=== PATIENT | male | born 1990 | race American Indian/Alaskan Native ===

== ENCOUNTER 2016-11-29 00:42 | Emergency (ER) | payer MEDICAID, OTHER ==
[2016-11-29 01:07] VITALS: BMI 19.9
[2016-11-29 01:20] VITALS: BP 126/66; PULSE 72; RESP 18; TEMP 97.7; O2SAT 99
--- NOTE | 2016-11-29 01:39 | ED PDOC ---
Arrival/HPI - General Chief Complaint: Abnormal Skin Integrity Time Seen by Provider: 11/29/16 01:36 Historian: Patient - History of Present Illness Narrative History of Present Illness (Text): 11/29/16 01:39 Brock Hathaway is a 26 year old male who presents to the Emergency department complaining of a left forearm laceration tonight. Patient states he was jumping over a fence while playing with friends at 21:30 yesterday when his left forearm became caught on the edge of the fence. Patient denies any weakness/ numbness/tingling in the extremities, swelling, or any other complaints. Patient states his last tetanus vaccination was in 2011. Time/Duration: 4-6 hours (21:30) Symptom Onset: Gradual Symptom Course: Unchanged Severity Level: Mild Context: Street Past Medical History - Provider Review Nursing Documentation Reviewed: Yes - Psychiatric Hx Substance Use: No Family/Social History - Physician Review Nursing Documentation Reviewed: Yes Family/Social History: No Known Family HX Smoking Status: Never Smoked Hx Alcohol Use: Yes Frequency of alcohol use: Socially Hx Substance Use: No Allergies/Home Meds Allergies/Adverse Reactions: Allergies No Known Allergies Allergy (Verified 11/29/16 01:07) Home Medications: Home Meds Medication Instructions Recorded Confirmed No Known Home Med 11/29/16 11/29/16 Review of Systems - Physician Review All systems were reviewed & negative as marked: Yes - Review of Systems Constitutional: Normal. absent: Fevers Eyes: Normal ENT: Normal Respiratory: Normal. absent: SOB, Cough Cardiovascular: Normal. absent: Chest Pain Gastrointestinal: Normal. absent: Abdominal Pain, Diarrhea, Nausea, Vomiting Genitourinary Male: Normal. absent: Dysuria, Frequency, Hematuria, Urinary Output Changes Musculoskeletal: Normal. absent: Back Pain, Neck Pain Skin: Laceration (+left forearm laceration). absent: Rash Neurological: Normal. absent: Headache, Dizziness Endocrine: Normal Hemo/Lymphatic: Normal Psychiatric: Normal Physical Exam Vital Signs Reviewed: Yes Vital Signs Temp Pulse Resp BP Pulse Ox 11/29/16 01:18 97.7 F 72 18 126/66 99 Temperature: Afebrile Blood Pressure: Normal Pulse: Regular Respiratory Rate: Normal Appearance: Positive for: Well-Appearing, Non-Toxic, Comfortable Pain Distress: None Mental Status: Positive for: Alert and Oriented X 3 - Systems Exam Head: Present: Atraumatic, Normocephalic Pupils: Present: PERRL Extroacular Muscles: Present: EOMI Conjunctiva: Present: Normal Mouth: Present: Moist Mucous Membranes Neck: Present: Normal Range of Motion Upper Extremity: Present: Normal ROM, NORMAL PULSES, Neurovascularly Intact, Capillary Refill < 2s, Other (3 cm laceration, slightly irregular, to dorsal left forearm). No: Cyanosis, Edema, Swelling, Erythema, Temperature Abnormalties Lower Extremity: Present: Normal Inspection. No: Edema Neurological: Present: GCS=15, CN II-XII Intact, Speech Normal Skin: Present: Warm, Dry, Normal Color. No: Rashes Psychiatric: Present: Alert, Oriented x 3, Normal Insight, Normal Concentration Medical Decision Making ED Course and Treatment: 11/29/16 01:39 Impression: 26 year old male complaining of left forearm laceration s/p injury at 21:30. Differential Diagnosis include but are not limited to: laceration Plan: -- Laceration Repair -- Reassess and disposition Progress Notes: 11/29/16 02:08 PROCEDURE: LACERATION REPAIR Performed by the emergency provider Location: Dorsal left forearm Length: 3 cm Description: Slightly irregular ,no foreign bodies Distal CMS: Normal. No deficits. Neurovascularly intact. Anesthesia: Lidocaine 1% Preparation: The wound was cleaned with NS and [place]. The area was prepped and draped in the usual sterile fashion. Exploration: The wound was explored and no foreign bodies were found. Procedure: The wound was closed with 5-0 nylon. 12 sutures placed. There was good approximation. Post-Procedure: Good closure and hemostasis. The patient tolerated the procedure well and there were no complications. CSM remains intact. Post procedure dressing applied. - Medication Orders Current Medication Orders: Discontinued Medications Lidocaine HCl (Lidocaine 1% (20ml)) Confirm Administered Dose 20 ml .ROUTE .STK- MED ONE Stop: 11/29/16 01:48 Last Admin: 11/29/16 02:00 Dose: 20 ml - Scribe Statement The provider has reviewed the documentation as recorded by the Scribjanes Hardy All medical record entries made by the Scribe were at my direction and personally dictated by me. I have reviewed the chart and agree that the record accurately reflects my personal performance of the history, physical exam, medical decision making, and the department course for this patient. I have also personally directed, reviewed, and agree with the discharge instructions and disposition. Disposition/Present on Arrival - Present on Arrival Any Indicators Present on Arrival: No History of DVT/PE: No History of Uncontrolled Diabetes: No Urinary Catheter: No History of Decub. Ulcer: No History Surgical Site Infection Following: None - Disposition Have Diagnosis and Disposition been Completed?: Yes Diagnosis: Arm laceration Disposition: HOSPITALIZED Disposition Time: 02:33 Patient Plan: Discharge Condition: STABLE Discharge Instructions (ExitCare): Laceration (ED), Care For Your Stitches (ED) Additional Instructions: Keep wound clean and dry/apply bacitracin/clean dressing daily/follow up with your doctor in 5-7 days for suture removal
[2016-11-29] MEDS ORDERED: Lidocaine 1% Inj (20ml) ONE (01:47)
== END 2016-11-29 03:06 | disposition home or self-care (01) ==
LOC: ED 00:42 → MERGE 00:42 → ED 03:06
DX: S51.812A Laceration without foreign body of left forearm, initial encounter (principal); W23.0XXA Caught, crushed, jammed, or pinched between moving objects, initial encounter; Y93.39 Activity, other involving climbing, rappelling and jumping off; Y92.410 Unspecified street and highway as the place of occurrence of the external cause

== ENCOUNTER 2016-12-02 19:20 | Inpatient (IN) | payer MEDICAID, OTHER ==
[2016-12-02] MEDS ORDERED: Vancomycin 1gm in NS 250ml 1 GM/250 ML BAG IVPB STA (20:06)
[2016-12-02] MEDS ORDERED: Piperacillin/Tazobact 3.375 gm 100 ML IVPB STA (20:06)
[2016-12-02 20:32] LABS: ADD MANUAL DIFF? NO
[2016-12-02 20:37] LABS: BASO # 0.01 K/mm3 (0.0-2.0); BASO % 0.1 % (0.0-3.0); EOS % 0.1 % (1.5-5.0); GRAN # 7.47 (1.4-6.5); HEMATOCRIT 40.5 % (42.0-52.0); LYMPH # 1.4 (1.2-3.4); LYMPH % 14.1 % (22.0-35.0); MEAN CELL VOLUME 86.9 fL (80.0-105.0); MEAN CORPUSCULAR HEMOGLOBIN 30.9 pg (25.0-35.0); MEAN CORPUSCULAR HGB CONC 35.6 g/dl (31.0-37.0); MEAN PLATELET VOLUME 9.6 fl (7.0-11.0); MONO # 0.8 (0.1-0.6); MONO % 8.7 % (1.0-6.0); PLATELET COUNT 194 10^3/uL (120.0-450.0); RED CELL DISTRIBUTION WIDTH 13.9 % (11.5-14.5); WHITE BLOOD COUNT 9.7 10^3/ul (4.5-11.0)
[2016-12-02 21:00] LABS: ALB/GLOB RATIO 1.2 (1.1-1.8); ALKALINE PHOSPHATASE 52 U/L (38-133); ALT/SGPT 19 U/L (7-56); AST/SGOT 32 U/L (15-59); BLOOD UREA NITROGEN 12 mg/dL (7-21); CALCIUM 10.2 mg/dL (8.4-10.5); CARBON DIOXIDE 28 mmol/L (21-33); CHLORIDE 95 mmol/L (98-107); GFR AFRICAN-AMERICAN > 60; GLUCOSE,RANDOM 89 mg/dL (70-110); POTASSIUM 3.3 mmol/L (3.6-5.0); SODIUM 135 mmol/L (132-148)
[2016-12-02 21:00] LABS: VENOUS BLOOD GAS BASE EXCESS 1.3 mmol/L (0.0-2.0); VENOUS BLOOD PH 7.34 (7.32-7.43)
[2016-12-02] MEDS ORDERED: Sodium Chloride 0.9% 1,000 ML IV STA (21:48)
--- NOTE | 2016-12-02 21:48 | ED PDOC ---
Arrival/HPI <ChrisDelgado - Last Filed: 12/03/16 00:14> - General Historian: Patient - History of Present Illness Time/Duration: Other (1 day) Context: Home <Patty Mcclain - Last Filed: 12/04/16 12:39> - General Chief Complaint: Wound Check Time Seen by Provider: 12/02/16 19:31 - History of Present Illness Narrative History of Present Illness (Text): 12/02/16 20:00 This 26 yo male presents to this ED c/o left forearm infection since yesterday. Patient stated he had a laceration repaired x 3 days ago. Patient kept the wound clean and dry for 2 days, so he undressed wound and noticed wound had a small draining. Patient stated left forearm is swollen as well.. Patient admits fever. (Patty Mcclain) Past Medical History - Provider Review Nursing Documentation Reviewed: Yes - Infectious Disease Hx of Infectious Diseases: None - Psychiatric Hx Substance Use: No - Anesthesia Hx Anesthesia: No - Suicidal Assessment Feels Threatened In Home Enviroment: No <Patty Mcclain - Last Filed: 12/04/16 12:39> Family/Social History - Physician Review Nursing Documentation Reviewed: Yes Family/Social History: No Known Family HX Smoking Status: Heavy Smoker > 10 Cigarettes Daily Hx Alcohol Use: No Hx Substance Use: No <Patty Mcclain - Last Filed: 12/04/16 12:39> Allergies/Home Meds <ChrisDelgado - Last Filed: 12/03/16 00:14> <Patty Mcclain - Last Filed: 12/04/16 12:39> Allergies/Adverse Reactions: Allergies No Known Allergies Allergy (Verified 12/02/16 19:27) Home Medications: Home Meds Medication Instructions Recorded Confirmed No Known Home Med 11/29/16 12/02/16 Review of Systems - Review of Systems Constitutional: Normal. absent: Fatigue, Weight Change, Fevers Eyes: Normal ENT: Normal Respiratory: Normal Cardiovascular: Normal Gastrointestinal: Normal Genitourinary Male: Normal Musculoskeletal: Other (See HPI) Skin: Normal Neurological: Normal Endocrine: Normal Hemo/Lymphatic: Normal Psychiatric: Normal <Patty Mcclain - Last Filed: 12/04/16 12:39> Physical Exam Temperature: Afebrile Blood Pressure: Normal Pulse: Regular Respiratory Rate: Normal Appearance: Positive for: Well-Appearing, Non-Toxic, Comfortable Pain Distress: None Mental Status: Positive for: Alert and Oriented X 3 - Systems Exam Head: Present: Atraumatic, Normocephalic Pupils: Present: PERRL Extroacular Muscles: Present: EOMI Conjunctiva: Present: Normal Mouth: Present: Moist Mucous Membranes Neck: Present: Normal Range of Motion Respiratory/Chest: Present: Clear to Auscultation, Good Air Exchange. No: Respiratory Distress, Accessory Muscle Use Cardiovascular: Present: Regular Rate and Rhythm, Normal S1, S2. No: Murmurs Abdomen: Present: Normal Bowel Sounds. No: Tenderness, Distention, Peritoneal Signs Back: Present: Normal Inspection Upper Extremity: Present: Normal ROM, NORMAL PULSES, Tenderness, Swelling, Erythema, Neurovascularly Intact, Temperature Abnormalties, Capillary Refill < 2s, Other ((+) 8 sutures placed left forearm with drainage, erythema, and swelling. No comparment syndrome). No: Cyanosis, Edema Lower Extremity: Present: Normal Inspection. No: Edema Neurological: Present: GCS=15, CN II-XII Intact, Speech Normal Skin: Present: Warm, Dry, Normal Color. No: Rashes Psychiatric: Present: Alert, Oriented x 3, Normal Insight, Normal Concentration <Patty Mcclain - Last Filed: 12/04/16 12:39> Vital Signs Temp Pulse Resp BP Pulse Ox 12/03/16 00:29 98.6 F 79 18 138/68 98 12/02/16 21:20 101 H 16 126/80 98 12/02/16 19:30 99.0 F 104 H 19 125/79 97 Medical Decision Making <Delgado Perez - Last Filed: 12/03/16 00:14> Re-evaluation Time: 22:45 Reassessment Condition: Re-examined, Improving,but remains with symptoms <Patty Mcclain - Last Filed: 12/04/16 12:39> ED Course and Treatment: I spoke with Dr. Hernandes regarding patient symptoms, and physical exam finding. He agrees with admission for observation. (Patty Mcclain) - Lab Interpretations Microbiology Results: Microbiology Results 12/02/16 20:15 Blood Blood Culture - Preliminary NO GROWTH AFTER 24 HOURS 12/02/16 19:45 Blood Blood Culture - Preliminary NO GROWTH AFTER 24 HOURS Lab Results: 12/03/16 08:00 12/03/16 08:00 Lab Results 12/03/16 08:00: WBC 7.3 D, RBC 4.14, Hgb 12.5 L, Hct 35.8 L, MCV 86.5, MCH 30.2 , MCHC 34.9, RDW 13.7, Plt Count 171, MPV 9.2, Gran % 62.3, Lymph % (Auto) 25.6 , [place] % (Auto) 10.7 H, Eos % (Auto) 1.1 L, Baso % (Auto) 0.3, Gran # 4.56, Lymph # 1.9, [place] # 0.8 H, Eos # 0.1, Baso # 0.02 12/03/16 08:00: Sodium 136, Potassium 3.9, Chloride 105, Carbon Dioxide 25, Anion Gap 10, BUN 9, Creatinine 0.9, Est GFR ( Amer) > 60, Est GFR (Non- Af Amer) > 60, Random Glucose 86, Calcium 8.6, Triglycerides 69, Cholesterol 144 , LDL Cholesterol Direct 72, HDL Cholesterol 59 12/03/16 08:00: Free T4 0.97, TSH 3rd Generation 1.05 12/03/16 08:00: Hepatitis A IgM Ab Negative, Hep Bs Antigen Negative, Hep B Core IgM Ab Negative, Hepatitis C Antibody Negative 12/03/16 08:00: RPR Nonreactive 12/03/16 08:00: Hemoglobin A1c 5.1 12/02/16 22:00: C-React Prot High Sens > 15.00 H 12/02/16 22:00: ESR 16 H 12/02/16 20:30: pO2 60 H, VBG pH 7.34, VBG pCO2 52.0, VBG HCO3 28.1 H, VBG Total CO2 29.7 H, VBG O2 Sat (Calc) 92.1 H, VBG Base Excess 1.3, VBG Potassium 3.6, Glucose 85, Lactate 2.1, FiO2 21.0, Sodium 136.0, Chloride 100.0, Venous Blood Potassium 3.6 12/02/16 19:45: Sodium 135, Potassium 3.3 L, Chloride 95 L, Carbon Dioxide 28, Anion Gap 15, BUN 12, Creatinine 1.0, Est GFR ( Amer) > 60, Est GFR (Non- Af Amer) > 60, Random Glucose 89, Calcium 10.2, Total Bilirubin 1.0, AST 32, ALT 19, Alkaline Phosphatase 52, Total Protein 9.0 H, Albumin 4.9 H, Globulin 4.1, Albumin/Globulin Ratio 1.2 12/02/16 19:45: WBC 9.7, RBC 4.66, Hgb 14.4, Hct 40.5 L, MCV 86.9, MCH 30.9, MCHC 35.6, RDW 13.9, Plt Count 194, MPV 9.6, Gran % 77.0 H, Lymph % (Auto) 14.1 L, [place] % (Auto) 8.7 H, Eos % (Auto) 0.1 L, Baso % (Auto) 0.1, Gran # 7.47 H, Lymph # 1.4, [place] # 0.8 H, Eos # 0.0, Baso # 0.01 - RAD Interpretation Radiology Orders: 12/02/16 20:05 FOREARM LEFT [RAD] Stat - Medication Orders Current Medication Orders: Acetaminophen (Tylenol 325mg Tab) 650 mg PO Q6H PRN PRN Reason: Fever >100.4 F Famotidine (Pepcid) 20 mg PO DAILY [facility] Last Admin: 12/04/16 09:19 Dose: 20 mg Cefepime HCl (Maxipime 1gm) 1 gm in 100 mls @ 100 mls/hr IVPB Q8 ROBE PRN Reason: Protocol Last Admin: 12/04/16 05:05 Dose: 100 mls/hr Vancomycin HCl (Vancomycin 1gm) 1 gm in 250 mls @ 167 mls/hr IVPB Q12H ROBE PRN Reason: Protocol Last Admin: 12/04/16 01:29 Dose: 167 mls/hr Ketorolac Tromethamine (Toradol) 30 mg IVP Q12H PRN PRN Reason: Pain, Mild (1-3) Stop: 12/07/16 22:19 Last Admin: 12/04/16 08:08 Dose: 30 mg Oxycodone/Acetaminophen (Percocet 5/325 Mg Tab) 1 tab PO Q4H PRN PRN Reason: Pain, severe (8-10) Stop: 12/06/16 15:43 Discontinued Medications Vancomycin HCl (Vancomycin 1gm) 1 gm in 250 mls @ 167 mls/hr IVPB STAT STA PRN Reason: Protocol Stop: 12/02/16 21:35 Last Admin: 12/02/16 21:22 Dose: 167 mls/hr Piperacillin Sod/Tazobactam Sod (Zosyn 3.375 In Ns 100ml) 100 mls @ 200 mls/hr IVPB STAT STA PRN Reason: Protocol Stop: 12/02/16 20:35 Last Admin: 12/02/16 20:31 Dose: 200 mls/hr Sodium Chloride (Sodium Chloride 0.9%) 1,000 mls @ 999 mls/hr IV .Q1H1M STA Stop: 12/02/16 22:48 Last Admin: 12/02/16 23:19 Dose: 999 mls/hr Cefepime HCl (Maxipime 1gm) 1 gm in 100 mls @ 100 mls/hr IVPB Q12 ROBE PRN Reason: Protocol Vancomycin HCl (Vancomycin 1gm) 1 gm in 250 mls @ 167 mls/hr IVPB Q24H ROBE Last Admin: 12/02/16 23:19 Dose: 167 mls/hr Sodium Chloride (Sodium Chloride 0.9%) 1,000 mls @ 100 mls/hr IV .Q10H ROBE Stop: 12/03/16 21:44 Last Admin: 12/04/16 01:29 Dose: 100 mls/hr Lidocaine HCl (Lidocaine 1% (20ml)) 0 ml IJ ONCE STA Stop: 12/03/16 14:11 Potassium Chloride (Potassium Chloride Oral Soln) 40 meq PO STAT STA Stop: 12/02/16 22:02 Last Admin: 12/03/16 00:22 Dose: 40 meq Potassium Chloride (K-Dur 20 Meq Er Tab) 40 meq PO STAT STA Stop: 12/02/16 22:13 Last Admin: 12/02/16 23:18 Dose: 40 meq Tetanus/Reduced Diphtheria/Acell Pertussis (Boostrix Vaccine Inj) 0.5 ml IM .ONCE ONE Stop: 12/02/16 22:09 Last Admin: 12/03/16 00:22 Dose: 0.5 ml - PA / FIRE EATER / Resident Statement / has reviewed & agrees with the documentation as recorded. / has examined the patient and agrees with the treatment plan. <Delgado Perez - Last Filed: 12/03/16 00:14> Disposition/Present on Arrival <Delgado Perez - Last Filed: 12/03/16 00:14> - Present on Arrival Any Indicators Present on Arrival: No History of DVT/PE: No History of Uncontrolled Diabetes: No Urinary Catheter: No History of Decub. Ulcer: No History Surgical Site Infection Following: None - Disposition Have Diagnosis and Disposition been Completed?: Yes Disposition Time: 23:00 <Patty Mcclain - Last Filed: 12/04/16 12:39> - Disposition Diagnosis: Cellulitis Disposition: HOSPITALIZED Patient Problems: Current Active Problems Problem Status Onset Cellulitis Acute Condition: GOOD
[2016-12-02] MEDS ORDERED: Potassium Chloride 40 mEq/30 ml LIQ UD PO STA (22:01)
[2016-12-02] MEDS ORDERED: TDAP Vaccine 0.5 mL Syr IM ONE (22:08)
[2016-12-02] MEDS ORDERED: Potassium Chloride 20 mEq ER Tab PO STA (22:12)
[2016-12-02] MEDS ORDERED: Vancomycin 1gm in NS 250ml IVPB SCH (22:15)
[2016-12-02] MEDS ORDERED: Vancomycin 1 g Inj IVPB SCH (22:15)
--- NOTE | 2016-12-02 22:23 | CP.PCM.HP ---
Addendum entered and electronically signed by Anival Henry DO 12/03/16 01:53: CC: pus and left arm pain Original Note: <Anival Henry - Last Filed: 12/02/16 22:20> History of Present Illness - History of Present Illness History of Present Illness: This patient is a 26yo M w/ no PMHx because he has not been to the doctor in the past 4 years, is presenting after he came to the ED for stitches in his left forearm; patient states he was climbing a fence and cut himself on it. He was given no antibiotics in the ED on his last visit. today when he went to clean the wound, he noticed that white pus was coming out that was malodorous. This has never happened to him before. Last tetanus shot was in 2011. Patient denies fevers/chills, MARTIN, CP, SOB, abdominal pain, N/V/D, dysuria/freq/urg/ change in urine color, lower extremtiy pain swelling. PMHx: denies Allergies: Denies FamHx: Denies Meds: Denies Social: lives at home with girlfriend; smokes 1ppd/10 years, denies illicit drug use Surgeries: denies The patient had a tachycardia of 101. All other VSS; no WBC; forearm X-Ray did not show any foreign bodies. He was given Vanc and Zosyn. Present on Admission - Present on Admission Any Indicators Present on Admission: No History of DVT/PE: No History of Uncontrolled Diabetes: No Urinary Catheter: No Decubitus Ulcer Present: No Review of Systems - Review of Systems All systems: reviewed and no additional remarkable complaints except Past Patient History - Infectious Disease Hx of Infectious Diseases: None - Past Social History Smoking Status: Heavy Smoker > 10 Cigarettes Daily - PSYCHIATRIC Hx Substance Use: No - SURGICAL HISTORY Hx Surgeries: No - ANESTHESIA Hx Anesthesia: No Meds Allergies/Adverse Reactions: Allergies Allergy/AdvReac Type Severity Reaction Status Date / Time No Known Allergies Allergy Verified 12/02/16 19:27 Physical Exam - Constitutional Appears: Well, Non-toxic - Head Exam Head Exam: ATRAUMATIC, NORMAL INSPECTION - Eye Exam Eye Exam: Conjunctival injection, EOMI, Normal appearance Pupil Exam: PERRL - ENT Exam ENT Exam: Mucous Membranes Moist - Neck Exam Neck exam: Positive for: Full Rom. Negative for: Lymphadenopathy - Respiratory Exam Respiratory Exam: Clear to Auscultation Bilateral, NORMAL BREATHING PATTERN. absent: Rales, Rhonchi, Wheezes - Cardiovascular Exam Cardiovascular Exam: REGULAR RHYTHM, +S1, +S2 - GI/Abdominal Exam GI & Abdominal Exam: Normal Bowel Sounds, Soft. absent: Tenderness - Extremities Exam Extremities exam: Positive for: full ROM. Negative for: calf tenderness, normal inspection Additional comments: 3-4cm linear laceration on lower forearm that is purulent and malodorous; there is induration and fluctuance - Back Exam Back exam: NORMAL INSPECTION. absent: CVA tenderness (L), CVA tenderness (R) - Neurological Exam Neurological exam: Alert, CN II-XII Intact, Normal Gait, Oriented x3 - Psychiatric Exam Psychiatric exam: Normal Affect - Skin Skin Exam: Warm Results - Vital Signs Recent Vital Signs: Last Vital Signs Temp 99.0 F 12/02/16 19:30 Pulse 101 H 12/02/16 21:20 Resp 16 12/02/16 21:20 BP 126/80 12/02/16 21:20 Pulse Ox 98 12/02/16 21:20 - Labs Result Diagrams: 12/02/16 19:45 12/02/16 19:45 Labs: Laboratory Results - last 24 hr 12/02/16 12/02/16 12/02/16 19:45 19:45 20:30 WBC 9.7 RBC 4.66 Hgb 14.4 Hct 40.5 L MCV 86.9 MCH 30.9 MCHC 35.6 RDW 13.9 Plt Count 194 MPV 9.6 Gran % 77.0 H Lymph % (Auto) 14.1 L [place] % (Auto) 8.7 H Eos % (Auto) 0.1 L Baso % (Auto) 0.1 Gran # 7.47 H Lymph # 1.4 Castro # 0.8 H Eos # 0.0 Baso # 0.01 pO2 60 H VBG pH 7.34 VBG pCO2 52.0 VBG HCO3 28.1 H VBG Total CO2 29.7 H VBG O2 Sat (Calc) 92.1 H VBG Base Excess 1.3 VBG Potassium 3.6 Glucose 85 Lactate 2.1 FiO2 21.0 Sodium 135 136.0 Potassium 3.3 L Chloride 95 L 100.0 Carbon Dioxide 28 Anion Gap 15 BUN 12 Creatinine 1.0 Est GFR ( Amer) > 60 Est GFR (Non-Af Amer) > 60 Random Glucose 89 Calcium 10.2 Total Bilirubin 1.0 AST 32 ALT 19 Alkaline Phosphatase 52 Total Protein 9.0 H Albumin 4.9 H Globulin 4.1 Albumin/Globulin Ratio 1.2 Venous Blood Potassium 3.6 Assessment & Plan - Assessment and Plan (Free Text) Assessment: 26yo M admitted for possible abscess in the L Lower Forearm Abscess L Lower Forearm -Surgical Consult: [place] for possible InD or exploration -f/u ESR/CRP if elevated forearm MRI may be indicated to r/o osteomyelitis -sepsis criteria not met -patient on Vanc and Cefepime for now as per Dr. Melissa; can adjust accordingly Prophylaxis SCD Pepcid Toradol for pain control OOB as tolerated Regular Diet Case discussed and seen with Dr. Cecilio Henry PGY1 Night Float Decision To Admit - Pt Status Changed To: Hospital Disposition Of: Observation - . Bed Request Type: Med/Surg Admitting Physician: Jamison Hernandes <Jamison Hernandes - Last Filed: 12/03/16 02:34> Results - Vital Signs Recent Vital Signs: Last Vital Signs Temp 99.8 F H 12/03/16 02:08 Pulse 76 12/03/16 02:08 Resp 20 12/03/16 02:08 BP 162/67 H 12/03/16 02:08 Pulse Ox 98 12/03/16 00:29 - Labs Result Diagrams: 12/02/16 19:45 12/02/16 19:45 Attending/Attestation - Attestation I have personally seen and examined this patient.: Yes I have fully participated in the care of the patient.: Yes I have reviewed all pertinent clinical information: Yes Notes (Text): 12/03/16 02:29 I agree with the above mentioned note by Dr. Barriga with the addition/exception of the followin26 y/o male without any significant PMHx presents to the ED with the complaint of drainage of pus and swelling of his left forearm since it was repaired a few days ago. Patient reports having a laceration to his forearm for which he came to [facility] and had repair with sutures. A few days later he reports drainage of pus , redness and pain around the wound which prompted him to return to the ED. He was reported to have subjective fevers as per the PA who examined the patient; Xray of the arm does not show any foreign body or bone involvement, thus an MRI would be unnecessary at this point, it does not appear to be osteomyelitis. Will have Surgery evaluate the patient for an I&D and place him on IV Abx for now.
--- NOTE | 2016-12-03 00:21 | CP.PCM.CON ---
<Niurka Dodson - Last Filed: 12/03/16 00:40> History of Present Illness - History of Present Illness History of Present Illness: General surgery consult for Dr. Harris Consulted for: Left forearm abscess Pt is a 26M who denies PMH who sustained a lacerated his left forearm on a fence 3 days ago and received stitches in [facility] ER and was discharged to home. Patient states the ER did not give him any antibiotics but that he was putting antibiotic ointment on the incision everyday at home. Yesterday patient noticed a foul odor coming from the incision and noticed thick fluid coming from it today so he returned to the ER. Patient states that he has mild tingling in his left fingers, and tenderness around the laceration with erythema of his arm, but denies any fevers, chills, CP, SOB, weakness, or decreased ROM in the L hand or arm. Patient's sutures were removed today in the ER, and patient states that decreased his pain and tingling. PMH: denies PSH: denies ALL: denies Patient is mildly tachycardic, afebrile XR of the L forearm showed no foreign bodies WBC: wnl Given zosyn in the ER Review of Systems - Review of Systems All systems: reviewed and no additional remarkable complaints except (as per HPI ) - Constitutional Constitutional: absent: Chills, Fever, Weakness - Cardiovascular Cardiovascular: absent: Chest Pain, Chest Pain at Rest, Dyspnea - Respiratory Respiratory: absent: Cough, Dyspnea, Wheezing - Gastrointestinal Gastrointestinal: absent: Abdominal Pain, Nausea, Vomiting - Musculoskeletal Musculoskeletal: As Per HPI - Integumentary Integumentary: As Per HPI - Neurological Neurological: As Per HPI Past Patient History - Infectious Disease Hx of Infectious Diseases: None - Past Medical History & Family History Past Medical History?: No - Past Social History Smoking Status: Heavy Smoker > 10 Cigarettes Daily - PSYCHIATRIC Hx Substance Use: No - SURGICAL HISTORY Hx Surgeries: No - ANESTHESIA Hx Anesthesia: No Meds Allergies/Adverse Reactions: Allergies Allergy/AdvReac Type Severity Reaction Status Date / Time No Known Allergies Allergy Verified 12/02/16 19:27 - Medications Medications: Current Medications Acetaminophen (Tylenol 325mg Tab) 650 mg PO Q6H PRN PRN Reason: Fever >100.4 F Famotidine (Pepcid) 20 mg PO DAILY [facility] Cefepime HCl (Maxipime 1gm) 1 gm in 100 mls @ 100 mls/hr IVPB Q12 [facility] PRN Reason: Protocol Vancomycin HCl (Vancomycin 1gm) 1 gm in 250 mls @ 167 mls/hr IVPB Q24H [facility] Last Admin: 12/02/16 23:19 Dose: 167 mls/hr Ketorolac Tromethamine (Toradol) 30 mg IVP Q12H PRN PRN Reason: Pain, Mild (1-3) Stop: 12/07/16 22:19 Physical Exam - Constitutional Appears: Well, Non-toxic, No Acute Distress - Head Exam Head Exam: ATRAUMATIC, NORMOCEPHALIC - Eye Exam Eye Exam: Conjunctival injection, EOMI. absent: Scleral icterus - ENT Exam ENT Exam: Mucous Membranes Moist, Normal Oropharynx - Respiratory Exam Respiratory Exam: NORMAL BREATHING PATTERN. absent: Accessory Muscle Use, Respiratory Distress - Cardiovascular Exam Cardiovascular Exam: Tachycardia, REGULAR RHYTHM - GI/Abdominal Exam GI & Abdominal Exam: absent: Distended, Tenderness - Extremities Exam Extremities exam: Positive for: pedal pulses present. Negative for: calf tenderness, pedal edema Additional comments: Left forearm erythematous and hot to the touch up to the elbow. 1+ non-pitting edema in the L hand 3-4cm laceration on the L forearm not approximated in the proximal half with dark, necrotic subcutaneous tissue at the base. Area of subcutaneous fluctuance extending beyond the proximal pole. Pressure on the fluctuant area produced 10cc 's of purulent-sanguinous output expressed from the laceration. 5/5 motor strength in the hands BL - Expanded Upper Extremities Exam Left Forearm Wrist exam: erythema, laceration, swelling, tenderness Neuro motor exam: finger 2-5 abduction intact, thumb abduction, wrist extension intact Vascular exam: radial pulse, ulnar pulse, normal capillary refill. absent: pallor, pulse deficit brachial art, pulse deficit radial art - Neurological Exam Neurological exam: Alert, Oriented x3 - Psychiatric Exam Psychiatric exam: Normal Affect, Normal Mood - Skin Additional comments: see extremity exam Results - Vital Signs Recent Vital Signs: Last Vital Signs Temp 99.0 F 12/02/16 19:30 Pulse 101 H 12/02/16 21:20 Resp 16 12/02/16 21:20 BP 126/80 12/02/16 21:20 Pulse Ox 98 12/02/16 21:20 - Labs Result Diagrams: 12/02/16 19:45 12/02/16 19:45 Assessment & Plan - Assessment and Plan (Free Text) Assessment: 26M with infected laceration and abscess of the left forearm Afebrile, HR 104 WBC wnl Plan: -Patient need I&D of abscess in the proximal pole of the laceration and debridement of necrotic tissue at the laceration base. This was not performed in ER as it may need to go to the OR tomorrow for thorough debridement and patient is stable -Continue IV antibiotics -Follow up wound culture -Monitor vitals closely -Close follow up on physical exam -NPO after midnight -IVF Further recs per Dr. Steven Dodson, PGY1 <Efren Harris - Last Filed: 12/05/16 14:38> Results - Vital Signs Recent Vital Signs: Last Vital Signs Temp 97.7 F 12/04/16 09:02 Pulse 57 L 12/04/16 09:02 Resp 20 12/04/16 09:02 BP 116/71 12/04/16 09:02 Pulse Ox 100 12/04/16 09:02 - Labs Result Diagrams: 12/04/16 10:31 12/04/16 10:31 Attending/Attestation - Attestation I have fully participated in the care of the patient.: Yes I have reviewed all pertinent clinical information: Yes Notes (Text): 12/05/16 14:36 Pt was seen and examined at bedside by resident Agree with above note and assessment Pt would need I & D of left forearm abscess IV antibitics Plan d.w Primary team in detail Risk and benefit explained in detail.
[2016-12-03 02:20] VITALS: RESP 20; BMI 21.7
[2016-12-03 08:24] LABS: ADD MANUAL DIFF? NO
--- NOTE | 2016-12-03 08:24 | RAD ---
PROCEDURE: Radiographs of the Left Forearm HISTORY: skin infection r/o FB COMPARISON: None available. TECHNIQUE: Frontal and lateral views obtained. FINDINGS: BONES: No fracture or destructive lesion. JOINT SPACES: Unremarkable. OTHER FINDINGS: Overall the soft tissues about the role and posterior forearm appear slightly prominent no gas-forming cellulitis is suggested. Clinical correlation needed. No radiopaque foreign body. No periosteal reaction. No osseous destruction IMPRESSION: No osseous abnormality. No radiopaque foreign body Soft tissue changes as above
[2016-12-03 08:30] LABS: BASO # 0.02 K/mm3 (0.0-2.0); BASO % 0.3 % (0.0-3.0); EOS # 0.1 (0.0-0.7); EOS % 1.1 % (1.5-5.0); GRAN # 4.56 (1.4-6.5); GRAN % 62.3 % (50.0-68.0); HEMATOCRIT 35.8 % (42.0-52.0); LYMPH # 1.9 (1.2-3.4); LYMPH % 25.6 % (22.0-35.0); MEAN CELL VOLUME 86.5 fL (80.0-105.0); MEAN CORPUSCULAR HEMOGLOBIN 30.2 pg (25.0-35.0); MEAN CORPUSCULAR HGB CONC 34.9 g/dl (31.0-37.0); MEAN PLATELET VOLUME 9.2 fl (7.0-11.0); MONO # 0.8 (0.1-0.6); MONO % 10.7 % (1.0-6.0); PLATELET COUNT 171 10^3/uL (120.0-450.0); RED CELL DISTRIBUTION WIDTH 13.7 % (11.5-14.5); WHITE BLOOD COUNT 7.3 10^3/ul (4.5-11.0)
[2016-12-03 08:42] LABS: BLOOD UREA NITROGEN 9 mg/dL (7-21); CALCIUM 8.6 mg/dL (8.4-10.5); CARBON DIOXIDE 25 mmol/L (21-33); CHLORIDE 105 mmol/L (95-110); CHOLESTEROL 144 mg/dL (130-200); GFR AFRICAN-AMERICAN > 60; GLUCOSE,RANDOM 86 mg/dL (70-110); POTASSIUM 3.9 mmol/L (3.6-5.0); SODIUM 136 mmol/L (132-148)
[2016-12-03 08:59] LABS: FREE T4 0.97 ng/dL (0.78-2.19)
[2016-12-03 09:13] LABS: THYROID STIMULATING HORMONE 1.05 mIU/mL (0.46-4.68)
[2016-12-03] MEDS ORDERED: Cefepime 1gm in NS 100ml 1 GM/100 ML BAG IVPB SCH (10:00)
--- NOTE | 2016-12-03 13:10 | CP.PCM.PN ---
<Abdelrahman León - Last Filed: 12/03/16 13:05> Subjective - Date & Time of Evaluation Date of Evaluation: 12/03/16 Time of Evaluation: 09:15 - Subjective Subjective: Medicine Progress Note for Dr. Smallwood Patient seen and examined at bedside. Fresh bandaging along LLE. No acute events after admission overnight. Denies pain, fevers, malaise, nausea, emesis. As per Surgery team, pending bedside debridement. Objective - Vital Signs/Intake and Output Vital Signs (last 24 hours): Temp Pulse Resp BP Pulse Ox 99 F 76 20 111/75 98 12/03/16 09:13 12/03/16 09:13 12/03/16 09:13 12/03/16 09:13 12/03/16 09:13 - Medications Medications: Current Medications Acetaminophen (Tylenol 325mg Tab) 650 mg PO Q6H PRN PRN Reason: Fever >100.4 F Famotidine (Pepcid) 20 mg PO DAILY [facility] Last Admin: 12/03/16 10:08 Dose: 20 mg Vancomycin HCl (Vancomycin 1gm) 1 gm in 250 mls @ 167 mls/hr IVPB Q24H [facility] Last Admin: 12/02/16 23:19 Dose: 167 mls/hr Sodium Chloride (Sodium Chloride 0.9%) 1,000 mls @ 100 mls/hr IV .Q10H [facility] Stop: 12/03/16 21:44 Cefepime HCl (Maxipime 1gm) 1 gm in 100 mls @ 100 mls/hr IVPB Q8 [facility] PRN Reason: Protocol Ketorolac Tromethamine (Toradol) 30 mg IVP Q12H PRN PRN Reason: Pain, Mild (1-3) Stop: 12/07/16 22:19 - Constitutional Appears: Well, Non-toxic, No Acute Distress - Head Exam Head Exam: ATRAUMATIC, NORMAL INSPECTION, NORMOCEPHALIC - Eye Exam Eye Exam: EOMI, Normal appearance. absent: Conjunctival injection, Scleral icterus Pupil Exam: absent: Irregular, Unequal - ENT Exam ENT Exam: Mucous Membranes Moist - Neck Exam Neck Exam: Full ROM, Normal Inspection - Respiratory Exam Respiratory Exam: Clear to Ausculation Bilateral, NORMAL BREATHING PATTERN. absent: Accessory Muscle Use, Chest Wall Tenderness, Decreased Breath Sounds, Rales, Rhonchi, Wheezes - Cardiovascular Exam Cardiovascular Exam: REGULAR RHYTHM, RRR, +S1, +S2. absent: Bradycardia, Tachycardia, Irregular Rhythm, +S4 - GI/Abdominal Exam GI & Abdominal Exam: Soft, Normal Bowel Sounds. absent: Distended, Firm, Rigid , Tenderness - Extremities Exam Additional comments: RLE exam: normal inspection, unremarkable, +2 radial pulse, +5 supervisor publications strength LLE: bandaging along forearm, under bandaging separation of proximal 1/3rd of suture site, yellow purulent drainage present, some further expression with pressure at upper medial forearm immediately adjacent to laceration, mild erythema surrounding laceration site, some warmth and tenderness to palpation at site and 2-3 cm surrounding site, intact +2 radial pulse, no loss of sensation throughout arm, +5 supervisor publications strength, areas of fluctuance around wound, most prominent medially and superiorly to wound Bilateral LE: unremarkable, motor grossly intact, no edema/erythema/gross asymmetry - Back Exam Back Exam: Full ROM. absent: paraspinal tenderness, rash noted - Neurological Exam Neurological Exam: Alert, Awake, Oriented x3 - Psychiatric Exam Psychiatric exam: Normal Affect, Normal Mood - Skin Additional comments: Abnormalities as already noted in Extremities exam, otherwise skin is normal/ intact/appropriate color/warm to palpation Assessment and Plan - Assessment and Plan (Free Text) Assessment: This patient is a 26 yo AA M with no PMH [place] [facility] [place] and poor healing of LUE laceration repaired 4 days prior now expressing purulence and with accompanying cellulitis, likely abscess underlying. Plan: 1) Abscess L Lower Forearm with poor wound healing -Likely wound infection with development of abscess, concurrent cellulitis -Per patient, was not discharged on any antibiotics, so not failure of outpatient antibiotics -Surgery (Grey) consulted, appreciate all recs; per surgery team, will likely undergo bedside debridement -Will cover will IV abx today and tomorrow (Vanc and Cefepime), likely d/c on Doxy and Keflex -CRP elevated, ESR mildly elevated (16, upper limit is 15), Forearm X-ray negative for Oseous abnormality, unlikely osteomyelitis -sepsis criteria not met; still no leukocytosis, still afebrile -Toradol for pain Dispo: Med/Surg pending Bedside Debridement per Surgery, continue IV abx FEN: Regular diet Access: IV Consults: Surgery Ppx: SCDs for DVT, Pepcid for GI Code Status: Full Patient seen and reviewed with attending, Dr. Smallwood <Trudi Smallwood - Last Filed: 12/03/16 15:25> Objective - Vital Signs/Intake and Output Vital Signs (last 24 hours): Temp Pulse Resp BP Pulse Ox 99 F 76 20 111/75 98 12/03/16 09:13 12/03/16 09:13 12/03/16 09:13 12/03/16 09:13 12/03/16 09:13 Intake and Output: 12/03/16 12/03/16 06:59 18:59 Intake Total 240 Balance 240 - Medications Medications: Current Medications Acetaminophen (Tylenol 325mg Tab) 650 mg PO Q6H PRN PRN Reason: Fever >100.4 F Famotidine (Pepcid) 20 mg PO DAILY [facility] Last Admin: 12/03/16 10:08 Dose: 20 mg Sodium Chloride (Sodium Chloride 0.9%) 1,000 mls @ 100 mls/hr IV .Q10H [facility] Stop: 12/03/16 21:44 Cefepime HCl (Maxipime 1gm) 1 gm in 100 mls @ 100 mls/hr IVPB Q8 [facility] PRN Reason: Protocol Last Admin: 12/03/16 14:26 Dose: 100 mls/hr Vancomycin HCl (Vancomycin 1gm) 1 gm in 250 mls @ 167 mls/hr IVPB Q12H [facility] PRN Reason: Protocol Ketorolac Tromethamine (Toradol) 30 mg IVP Q12H PRN PRN Reason: Pain, Mild (1-3) Stop: 12/07/16 22:19 Attending/Attestation - Attestation I have personally seen and examined this patient.: Yes I have fully participated in the care of the patient.: Yes I have reviewed all pertinent clinical information, including history, physical exam and plan: Yes Notes (Text): 12/03/16 15:21 Attending note; Patient seen and examined with resident. Patient is a 26-year-old male with no significant past medical history is admitted with left forearm abscess. The patient was recently seen in ER on 11/29/16 and sutures placed for injury to the left forearm. The patient noticed increased swelling and purulent discharge. He was not on any antibiotics. Patient was admitted for cellulitis and abscess of left forearm. Plan for incision and drainage by surgery today. Continue dressing change per surgery. Wound culture, blood culture sent. Patient is afebrile and nontoxic. Follow-up culture results. Upon discharge the patient will follow-up with PMD of choice.
[2016-12-03] MEDS ORDERED: Lidocaine 1% Inj (20ml) IJ STA (14:10)
[2016-12-03] MEDS: Cefepime 1gm in NS 100ml 1 GM/100 ML BAG IVPB SCH ×2 (14:26→21:11)
--- NOTE | 2016-12-03 15:09 | CP.PCM.PN ---
Subjective - Date & Time of Evaluation Date of Evaluation: 12/03/16 Time of Evaluation: 15:00 - Subjective Subjective: Incision and drainage performed at bedside. Oral consent obtain. See below for detail. Objective - Vital Signs/Intake and Output Vital Signs (last 24 hours): Temp Pulse Resp BP Pulse Ox 99 F 76 20 111/75 98 12/03/16 09:13 12/03/16 09:13 12/03/16 09:13 12/03/16 09:13 12/03/16 09:13 Intake and Output: 12/03/16 12/03/16 06:59 18:59 Intake Total 240 Balance 240 - Medications Medications: Current Medications Acetaminophen (Tylenol 325mg Tab) 650 mg PO Q6H PRN PRN Reason: Fever >100.4 F Famotidine (Pepcid) 20 mg PO DAILY [facility] Last Admin: 12/03/16 10:08 Dose: 20 mg Sodium Chloride (Sodium Chloride 0.9%) 1,000 mls @ 100 mls/hr IV .Q10H [facility] Stop: 12/03/16 21:44 Cefepime HCl (Maxipime 1gm) 1 gm in 100 mls @ 100 mls/hr IVPB Q8 [facility] PRN Reason: Protocol Last Admin: 12/03/16 14:26 Dose: 100 mls/hr Vancomycin HCl (Vancomycin 1gm) 1 gm in 250 mls @ 167 mls/hr IVPB Q12H [facility] PRN Reason: Protocol Ketorolac Tromethamine (Toradol) 30 mg IVP Q12H PRN PRN Reason: Pain, Mild (1-3) Stop: 12/07/16 22:19 Incision and Drainage - Time Time Performed: 15:06 - Time Out Time Out: Side verified, Site verified, Patient ID confirmed, Sterile procedures obs. - Procedure Procedure-Incision & Drainage: of left forearm abscess - Consent obtained Consent obtained: Verbal - Performed by Performed by: Attending Physician (resident physician) - Indications Indications: Cutaneous abscess - Contraindications Contraindications: None - Location Location: Left (mid forearm), Dorsal - Dimensions Dimensions Length cm: 10cm - Anesthetic Technique Anesthetic Technique: Local - Anesthetic Anesthetic: Lidocaine 1% - Procedure Procedure: Usual prep and drape, cm incision (3cm), Overlying area fluctuance, # scalpel used (11), Explored for loculations, Packed with sterile gauze - Drained Drained: ml pus (3cc) - Post-procedure Post procedure: Dressed (sterile dressing) - Complications Complications: None - Patient tolerated procedure Patient tolerated procedure: Well
[2016-12-03] MEDS ORDERED: Oxycodone/Acetaminophen 5/325 mg Tab PO PRN (15:42)
[2016-12-03] MEDS: Vancomycin 1gm in NS 250ml 1 GM/250 ML BAG IVPB SCH (15:57)
[2016-12-03] MEDS: Sodium Chloride 0.9% 1,000 ML IV SCH (15:57)
[2016-12-04] MEDS: Sodium Chloride 0.9% 1,000 ML IV SCH (01:29)
[2016-12-04] MEDS: Vancomycin 1gm in NS 250ml 1 GM/250 ML BAG IVPB SCH ×2 (01:29→14:24)
[2016-12-04] MEDS: Cefepime 1gm in NS 100ml 1 GM/100 ML BAG IVPB SCH ×2 (05:05→13:36)
[2016-12-04 09:02] VITALS: BP 116/71; PULSE 57; TEMP 97.7; O2SAT 100
[2016-12-04 10:33] LABS: ADD MANUAL DIFF? NO
[2016-12-04 10:38] LABS: BASO # 0.01 K/mm3 (0.0-2.0); BASO % 0.3 % (0.0-3.0); EOS # 0.1 (0.0-0.7); GRAN # 2.29 (1.4-6.5); GRAN % 58.1 % (50.0-68.0); HEMATOCRIT 35.9 % (42.0-52.0); LYMPH # 1.2 (1.2-3.4); MEAN CELL VOLUME 86.5 fL (80.0-105.0); MEAN CORPUSCULAR HEMOGLOBIN 29.6 pg (25.0-35.0); MEAN CORPUSCULAR HGB CONC 34.3 g/dl (31.0-37.0); MEAN PLATELET VOLUME 9.3 fl (7.0-11.0); MONO # 0.3 (0.1-0.6); MONO % 8.6 % (1.0-6.0); PLATELET COUNT 154 10^3/uL (120.0-450.0); RED CELL DISTRIBUTION WIDTH 13.4 % (11.5-14.5); WHITE BLOOD COUNT 3.9 10^3/ul (4.5-11.0)
[2016-12-04 10:47] LABS: BLOOD UREA NITROGEN 9 mg/dL (7-21); CALCIUM 8.8 mg/dL (8.4-10.5); CARBON DIOXIDE 27 mmol/L (21-33); CHLORIDE 105 mmol/L (98-107); GFR AFRICAN-AMERICAN > 60; GLUCOSE,RANDOM 118 mg/dL (70-110); POTASSIUM 4.1 mmol/L (3.6-5.0); SODIUM 136 mmol/L (132-148)
--- NOTE | 2016-12-04 12:07 | CP.PCM.PN ---
<Ayaan Abrams - Last Filed: 12/04/16 12:03> Subjective - Date & Time of Evaluation Date of Evaluation: 12/04/16 Time of Evaluation: 07:20 - Subjective Subjective: Ayaan Abrams D.O. PGY-1, General Surgery Progress Note: Dr. Steven Yates. 26 year old male with a left forearm laceration with abscess. POD #1 from bedside I&D. Patient is doing much better today and states that his swelling has gone down. Patient denies any complaints including any fevers/chills/N/V/D/ C or otherwise. Objective - Vital Signs/Intake and Output Vital Signs (last 24 hours): Temp Pulse Resp BP Pulse Ox 97.7 F 57 L 20 116/71 100 12/04/16 09:02 12/04/16 09:02 12/04/16 09:02 12/04/16 09:02 12/04/16 09:02 Intake and Output: 12/04/16 12/04/16 06:59 18:59 Intake Total 420 Balance 420 - Medications Medications: Current Medications Acetaminophen (Tylenol 325mg Tab) 650 mg PO Q6H PRN PRN Reason: Fever >100.4 F Famotidine (Pepcid) 20 mg PO DAILY [facility] Last Admin: 12/04/16 09:19 Dose: 20 mg Cefepime HCl (Maxipime 1gm) 1 gm in 100 mls @ 100 mls/hr IVPB Q8 [facility] PRN Reason: Protocol Last Admin: 12/04/16 05:05 Dose: 100 mls/hr Vancomycin HCl (Vancomycin 1gm) 1 gm in 250 mls @ 167 mls/hr IVPB Q12H [facility] PRN Reason: Protocol Last Admin: 12/04/16 01:29 Dose: 167 mls/hr Ketorolac Tromethamine (Toradol) 30 mg IVP Q12H PRN PRN Reason: Pain, Mild (1-3) Stop: 12/07/16 22:19 Last Admin: 12/04/16 08:08 Dose: 30 mg Oxycodone/Acetaminophen (Percocet 5/325 Mg Tab) 1 tab PO Q4H PRN PRN Reason: Pain, severe (8-10) Stop: 12/06/16 15:43 - Labs Labs: 12/04/16 10:31 12/04/16 10:31 - Constitutional Appears: Well, Non-toxic, No Acute Distress - Head Exam Head Exam: ATRAUMATIC, NORMOCEPHALIC - Eye Exam Eye Exam: Conjunctival injection, EOMI. absent: Scleral icterus - ENT Exam ENT Exam: Mucous Membranes Moist, Normal Oropharynx - Respiratory Exam Respiratory Exam: NORMAL BREATHING PATTERN. absent: Accessory Muscle Use, Respiratory Distress - Cardiovascular Exam Cardiovascular Exam: Tachycardia, REGULAR RHYTHM - GI/Abdominal Exam GI & Abdominal Exam: absent: Distended, Tenderness - Extremities Exam Extremities exam: left forearm laceration with packing in place, replaced at bedside, covered and wrapped, minimal serosangenous drainage on bandages - Neurological Exam Neurological exam: Alert, Oriented x3 - Skin Additional comments: warm, dry, see ext exam Assessment and Plan - Assessment and Plan (Free Text) Assessment: 26 year old male with a left forearm laceration with abscess. POD #1 from bedside I&D. Plan: Cont daily packing and dressing changes, patient ok to perform on his own Spoke with primary team, will need cont abx Will need to see us in outpatient office in 1 weeks time Ok to discharge from surgical standpoint at this time Will discuss with attending physician. Thank for the pleasure of participating in the care of this patient. <Efren Harris - Last Filed: 12/05/16 14:39> Objective - Vital Signs/Intake and Output Vital Signs (last 24 hours): Temp Pulse Resp BP Pulse Ox 97.7 F 57 L 20 116/71 100 12/04/16 09:02 12/04/16 09:02 12/04/16 09:02 12/04/16 09:02 12/04/16 09:02 - Labs Labs: 12/04/16 10:31 12/04/16 10:31 Attending/Attestation - Attestation I have fully participated in the care of the patient.: Yes I have reviewed all pertinent clinical information, including history, physical exam and plan: Yes Notes (Text): 12/05/16 14:38 Pt can be DC home with Po antibiotics Local wound care f.U as out pt in my Office Plan d/w pt in detail .
--- NOTE | 2016-12-04 16:29 | CP.PCM.DIS ---
<Abdelrahman León - Last Filed: 12/04/16 16:19> Provider - Provider Date of Admission: 12/03/16 11:08 Attending physician: Trudi Smallwood MD Primary care physician: None Consults: Surgery: Steven Time Spent in preparation of Discharge (in minutes): 35 Diagnosis - Discharge Diagnosis (1) Abscess Status: Resolved Priority: Medium (2) Cellulitis Status: Resolved Priority: Medium Hospital Course - Lab Results Lab Results: Most Recent Lab Values WBC 3.9 10^3/ul (4.5-11.0) L D 12/04/16 10:31 RBC 4.15 10^6/uL (3.5-6.1) 12/04/16 10:31 Hgb 12.3 gm/dL (14.0-18.0) L 12/04/16 10:31 Hct 35.9 % (42.0-52.0) L 12/04/16 10:31 MCV 86.5 fL (80.0-105.0) 12/04/16 10:31 MCH 29.6 pg (25.0-35.0) 12/04/16 10:31 MCHC 34.3 g/dl (31.0-37.0) 12/04/16 10:31 RDW 13.4 % (11.5-14.5) 12/04/16 10:31 Plt Count 154 10^3/uL (120.0-450.0) 12/04/16 10:31 MPV 9.3 fl (7.0-11.0) 12/04/16 10:31 Gran % 58.1 % (50.0-68.0) 12/04/16 10:31 Lymph % (Auto) 31.0 % (22.0-35.0) 12/04/16 10:31 Terry % (Auto) 8.6 % (1.0-6.0) H 12/04/16 10:31 Eos % (Auto) 2.0 % (1.5-5.0) 12/04/16 10:31 Baso % (Auto) 0.3 % (0.0-3.0) 12/04/16 10:31 Gran # 2.29 (1.4-6.5) 12/04/16 10:31 Lymph # 1.2 (1.2-3.4) 12/04/16 10:31 Terry # 0.3 (0.1-0.6) 12/04/16 10:31 Eos # 0.1 (0.0-0.7) 12/04/16 10:31 Baso # 0.01 K/mm3 (0.0-2.0) 12/04/16 10:31 ESR 16 mm/hr (0.0-15.0) H 12/02/16 22:00 pO2 60 mm/Hg (30-55) H 12/02/16 20:30 VBG pH 7.34 (7.32-7.43) 12/02/16 20:30 VBG pCO2 52.0 (40-60) 12/02/16 20:30 VBG HCO3 28.1 mmol/l (21-28) H 12/02/16 20:30 VBG Total CO2 29.7 mmol.L (22-28) H 12/02/16 20:30 VBG O2 Sat (Calc) 92.1 % (40-65) H 12/02/16 20:30 VBG Base Excess 1.3 mmol/L (0.0-2.0) 12/02/16 20:30 VBG Potassium 3.6 mmol/L (3.6-5.2) 12/02/16 20:30 Sodium 136.0 mmol/L (132-148) 12/02/16 20:30 Chloride 100.0 mmol/L (98-107) 12/02/16 20:30 Glucose 85 mg/dl (75-110) 12/02/16 20:30 Lactate 2.1 mmol/L (0.7-2.1) 12/02/16 20:30 FiO2 21.0 % 12/02/16 20:30 Sodium 136 mmol/L (132-148) 12/04/16 10:31 Potassium 4.1 mmol/L (3.6-5.0) 12/04/16 10:31 Chloride 105 mmol/L (98-107) 12/04/16 10:31 Carbon Dioxide 27 mmol/L (21-33) 12/04/16 10:31 Anion Gap 8 (10-20) L 12/04/16 10:31 BUN 9 mg/dL (7-21) 12/04/16 10:31 Creatinine 0.9 mg/dL (0.5-1.4) 12/04/16 10:31 Est GFR ( Amer) > 60 12/04/16 10:31 Est GFR (Non-Af Amer) > 60 12/04/16 10:31 Random Glucose 118 mg/dL (70-110) H 12/04/16 10:31 Hemoglobin A1c 5.1 % (4.2-6.5) 12/03/16 08:00 Calcium 8.8 mg/dL (8.4-10.5) 12/04/16 10:31 Total Bilirubin 1.0 mg/dL (0.2-1.3) 12/02/16 19:45 AST 32 U/L (15-59) 12/02/16 19:45 ALT 19 U/L (7-56) 12/02/16 19:45 Alkaline Phosphatase 52 U/L (38-133) 12/02/16 19:45 C-React Prot High Sens > 15.00 mg/L (1.00-3.00) H 12/02/16 22:00 Total Protein 9.0 g/dL (5.8-8.3) H 12/02/16 19:45 Albumin 4.9 g/dL (3.0-4.8) H 12/02/16 19:45 Globulin 4.1 gm/dL 12/02/16 19:45 Albumin/Globulin Ratio 1.2 (1.1-1.8) 12/02/16 19:45 Triglycerides 69 mg/dL (35-160) 12/03/16 08:00 Cholesterol 144 mg/dL (130-200) 12/03/16 08:00 LDL Cholesterol Direct 72 mg/dL (0-129) 12/03/16 08:00 HDL Cholesterol 59 mg/dL (29-60) 12/03/16 08:00 Free T4 0.97 ng/dL (0.78-2.19) 12/03/16 08:00 TSH 3rd Generation 1.05 mIU/mL (0.46-4.68) 12/03/16 08:00 Venous Blood Potassium 3.6 mmol/L (3.6-5.2) 12/02/16 20:30 RPR Nonreactive (NONREACTIVE) 12/03/16 08:00 Hepatitis A IgM Ab Negative (NEGATIVE) 12/03/16 08:00 Hep Bs Antigen Negative (NEGATIVE) 12/03/16 08:00 Hep B Core IgM Ab Negative (NEGATIVE) 12/03/16 08:00 Hepatitis C Antibody Negative (NEGATIVE) 12/03/16 08:00 - Hospital Course Hospital Course: This is a 26 yo AA M with no reported PMH (has not seen a doctor in >4 years) who [place] [facility] [place] swelling, erythema, and purulent drainage from a sutured laceration he obtained on 11/29/16 (cut his arm on a metal gate). He received stitches in the ED at the initial visit, but when cleaning the area on 12/03/16, he noted whitish drainage from the site with foul odor, and erythema he had not previously noted. On arrival, stitches were removed, and more purulent drainage was discovered, as well as areas of fluctuance around the site. While here, patient was seen by Surgery, who recommended a bedside debridement of the wound, which was obtained. Bandaging changes and cleaning of the site were discussed with the patient as per Surgery's recommendations, which he verbalized understanding and agreement with. Radiographs of the arm did not show any bony changes, so osteomyelitis unlikely. The patient received 2 days of IV vancomycin and cefepime, and at discharge he was prescribed 8 days of doxycycline and keflex, to complete a 10-day course for his cellulitis. He was instructed to follow up with Surgery as an oupt within 1 week, or sooner if he noted worsening necrotic tissue during his bandage changes, and he was instructed to follow up at the [facility] at [facility] (has no PMD). He expressed understanding and agreement. All questions were answered to his satisfaction, and he was discharged to home. Patient seen and discussed with attending, Dr. Smallwood. Discharge Exam - Head Exam Head Exam: ATRAUMATIC, NORMAL INSPECTION, NORMOCEPHALIC - Additional Findings Additional findings: - Constitutional Appears: Well, Non-toxic, No Acute Distress - Head Exam Head Exam: ATRAUMATIC, NORMAL INSPECTION, NORMOCEPHALIC - Eye Exam Eye Exam: EOMI, Normal appearance. absent: Conjunctival injection, Scleral icterus Pupil Exam: absent: Irregular, Unequal - ENT Exam ENT Exam: Mucous Membranes Moist - Neck Exam Neck Exam: Full ROM, Normal Inspection - Respiratory Exam Respiratory Exam: Clear to Ausculation Bilateral, NORMAL BREATHING PATTERN. absent: Accessory Muscle Use, Chest Wall Tenderness, Decreased Breath Sounds, Rales, Rhonchi, Wheezes - Cardiovascular Exam Cardiovascular Exam: REGULAR RHYTHM, RRR, +S1, +S2. absent: Bradycardia, Tachycardia, Irregular Rhythm, +S4 - GI/Abdominal Exam GI & Abdominal Exam: Soft, Normal Bowel Sounds. absent: Distended, Firm, Rigid , Tenderness - Extremities Exam RUE exam: normal inspection, unremarkable, +2 radial pulse, +5 signaler strength, motor grossly intact LUE: bandaging along forearm, intact +2 radial pulse, no loss of sensation throughout arm, +5 signaler strength, site under bandaging clean and without active drainage, no areas of fluctuance palpated, no gross erythema extending beyond wound site, no abnormal temperature sensation on palpation, motor grossly intact Bilateral LE: unremarkable, motor grossly intact, no edema/erythema/gross asymmetry - Back Exam Back Exam: Full ROM. absent: paraspinal tenderness, rash noted - Neurological Exam Neurological Exam: Alert, Awake, Oriented x3 - Psychiatric Exam Psychiatric exam: Normal Affect, Normal Mood - Skin Abnormalities as already noted in Extremities exam, otherwise skin is normal/ intact/appropriate color/warm to palpation Discharge Plan - Discharge Medications Prescriptions: Cephalexin [Keflex] 500 mg PO Q12 #16 capsule Doxycycline Hyclate [Doryx] 100 mg PO Q12 #16 cap - Follow Up Plan Condition: GOOD Disposition: HOME/ ROUTINE Instructions: Wound Infection (DC), Cellulitis (DC), Acute Wound Care (DC) Additional Instructions: Please establish yourself with a Primary Medical Doctor and follow up within 72 hours, or call to make an appointment at the clinic and follow up within 1 week. Please follow up with the Surgeon (Dr. Harris) within 1 week, or call the office and come sooner if you notice worsening blackened tissue in your wound when changing your bandages Please changes your bandaging one time per day. Change bandages when wet, keep area dry. Please take all medications as prescribed. Referrals: [facility] [place]] Efren Harris MD [Medical Doctor] - <Trudi Smallwood - Last Filed: 12/05/16 13:30> Provider - Provider Date of Admission: 12/03/16 11:08 Attending physician: Trudi Smallwood MD Hospital Course - Lab Results Lab Results: Most Recent Lab Values WBC 3.9 10^3/ul (4.5-11.0) L D 12/04/16 10:31 RBC 4.15 10^6/uL (3.5-6.1) 12/04/16 10:31 Hgb 12.3 gm/dL (14.0-18.0) L 12/04/16 10:31 Hct 35.9 % (42.0-52.0) L 12/04/16 10:31 MCV 86.5 fL (80.0-105.0) 12/04/16 10:31 MCH 29.6 pg (25.0-35.0) 12/04/16 10:31 MCHC 34.3 g/dl (31.0-37.0) 12/04/16 10:31 RDW 13.4 % (11.5-14.5) 12/04/16 10:31 Plt Count 154 10^3/uL (120.0-450.0) 12/04/16 10:31 MPV 9.3 fl (7.0-11.0) 12/04/16 10:31 Gran % 58.1 % (50.0-68.0) 12/04/16 10:31 Lymph % (Auto) 31.0 % (22.0-35.0) 12/04/16 10:31 Terry % (Auto) 8.6 % (1.0-6.0) H 12/04/16 10:31 Eos % (Auto) 2.0 % (1.5-5.0) 12/04/16 10:31 Baso % (Auto) 0.3 % (0.0-3.0) 12/04/16 10:31 Gran # 2.29 (1.4-6.5) 12/04/16 10:31 Lymph # 1.2 (1.2-3.4) 12/04/16 10:31 Terry # 0.3 (0.1-0.6) 12/04/16 10:31 Eos # 0.1 (0.0-0.7) 12/04/16 10:31 Baso # 0.01 K/mm3 (0.0-2.0) 12/04/16 10:31 ESR 16 mm/hr (0.0-15.0) H 12/02/16 22:00 pO2 60 mm/Hg (30-55) H 12/02/16 20:30 VBG pH 7.34 (7.32-7.43) 12/02/16 20:30 VBG pCO2 52.0 (40-60) 12/02/16 20:30 VBG HCO3 28.1 mmol/l (21-28) H 12/02/16 20:30 VBG Total CO2 29.7 mmol.L (22-28) H 12/02/16 20:30 VBG O2 Sat (Calc) 92.1 % (40-65) H 12/02/16 20:30 VBG Base Excess 1.3 mmol/L (0.0-2.0) 12/02/16 20:30 VBG Potassium 3.6 mmol/L (3.6-5.2) 12/02/16 20:30 Sodium 136.0 mmol/L (132-148) 12/02/16 20:30 Chloride 100.0 mmol/L (98-107) 12/02/16 20:30 Glucose 85 mg/dl (75-110) 12/02/16 20:30 Lactate 2.1 mmol/L (0.7-2.1) 12/02/16 20:30 FiO2 21.0 % 12/02/16 20:30 Sodium 136 mmol/L (132-148) 12/04/16 10:31 Potassium 4.1 mmol/L (3.6-5.0) 12/04/16 10:31 Chloride 105 mmol/L (98-107) 12/04/16 10:31 Carbon Dioxide 27 mmol/L (21-33) 12/04/16 10:31 Anion Gap 8 (10-20) L 12/04/16 10:31 BUN 9 mg/dL (7-21) 12/04/16 10:31 Creatinine 0.9 mg/dL (0.5-1.4) 12/04/16 10:31 Est GFR ( Amer) > 60 12/04/16 10:31 Est GFR (Non-Af Amer) > 60 12/04/16 10:31 Random Glucose 118 mg/dL (70-110) H 12/04/16 10:31 Hemoglobin A1c 5.1 % (4.2-6.5) 12/03/16 08:00 Calcium 8.8 mg/dL (8.4-10.5) 12/04/16 10:31 Total Bilirubin 1.0 mg/dL (0.2-1.3) 12/02/16 19:45 AST 32 U/L (15-59) 12/02/16 19:45 ALT 19 U/L (7-56) 12/02/16 19:45 Alkaline Phosphatase 52 U/L (38-133) 12/02/16 19:45 C-React Prot High Sens > 15.00 mg/L (1.00-3.00) H 12/02/16 22:00 Total Protein 9.0 g/dL (5.8-8.3) H 12/02/16 19:45 Albumin 4.9 g/dL (3.0-4.8) H 12/02/16 19:45 Globulin 4.1 gm/dL 12/02/16 19:45 Albumin/Globulin Ratio 1.2 (1.1-1.8) 12/02/16 19:45 Triglycerides 69 mg/dL (35-160) 12/03/16 08:00 Cholesterol 144 mg/dL (130-200) 12/03/16 08:00 LDL Cholesterol Direct 72 mg/dL (0-129) 12/03/16 08:00 HDL Cholesterol 59 mg/dL (29-60) 12/03/16 08:00 Free T4 0.97 ng/dL (0.78-2.19) 12/03/16 08:00 TSH 3rd Generation 1.05 mIU/mL (0.46-4.68) 12/03/16 08:00 Venous Blood Potassium 3.6 mmol/L (3.6-5.2) 12/02/16 20:30 RPR Nonreactive (NONREACTIVE) 12/03/16 08:00 Hepatitis A IgM Ab Negative (NEGATIVE) 12/03/16 08:00 Hep Bs Antigen Negative (NEGATIVE) 12/03/16 08:00 Hep B Core IgM Ab Negative (NEGATIVE) 12/03/16 08:00 Hepatitis C Antibody Negative (NEGATIVE) 12/03/16 08:00 Attending/Attestation - Attestation I have personally seen and examined this patient.: Yes I have fully participated in the care of the patient.: Yes I have reviewed all pertinent clinical information, including history, physical exam and plan: Yes Notes (Text): 12/05/16 13:29 Attending note; Patient seen and examined with resident. Patient is a 26-year-old male with no significant past medical history is admitted with left forearm abscess. The patient was recently seen in ER on 11/29/16 and sutures placed for injury to the left forearm. The patient noticed increased swelling and purulent discharge. He was not on any antibiotics. Patient was admitted for cellulitis and abscess of left forearm. s/p incision and drainage by surgery Continue dressing change/ packing per surgery. Wound culture pending. blood culture is negative. Patient is afebrile and nontoxic. Upon discharge the patient will follow-up with PMD of choice. Diagnosis; L fore arm abscess s/p I and D 12/05/16 13:29
--- NOTE | 2016-12-05 15:21 | OP ---
PROCEDURE DATE: 12/03/2016 PREOPERATIVE DIAGNOSIS: Left forearm abscess. POSTOPERATIVE DIAGNOSIS: Left forearm abscess. PROCEDURE DONE: Incision and drainage of left forearm abscess. SURGEON: Efren Harris MD. DATA ENTRY COORDINATOR: Nelsy Perry, PGY-1 resident. ANESTHESIA: Local anesthesia. ESTIMATED BLOOD LOSS: Around 5 mL. DRAINS: None. PATHOLOGY: Pus was sent for the pathology. COMPLICATIONS: None. INTRAOPERATIVE FINDINGS: The patient had approximately 3 x 3 cm abscess of the left forearm. INTRAOPERATIVE STEPS: This 26-year-old male was diagnosed with left forearm abscess and patient was consented for the procedure. Left forearm was prepped and draped and local anesthesia was injected, and the abscess was drained, and it was packed with iodoform packing and dry sterile dressing was [place] lied. The patient tolerated the procedure well. Count of instruments and gauze was correct. There was no apparent complication. Efren Harris MD cc: [id number] TT: 12/05/2016 15:21:02 [place]
== END 2016-12-04 17:40 | disposition home or self-care (01) | DRG 863 ==
LOC: ED 19:20 → ERH 23:39 → 3RSO 12-03 00:45 → OBSVTOIN 12-03 11:08
PROVIDERS: ADMIT Internal Medicine; ATTEND Internal Medicine
PROC: 0H9CXZX Drainage of Left Upper Arm Skin, External Approach, Diagnostic (ICD-10-PCS; principal; 2016-12-03)
DX: T81.4XXA Infection following a procedure, initial encounter (principal); L02.414 Cutaneous abscess of left upper limb; L03.114 Cellulitis of left upper limb; Z87.891 Personal history of nicotine dependence